=== PATIENT | male | born 1990 | race Caucasian/White ===

== ENCOUNTER 2017-05-20 11:20 | Emergency (ER) | payer MEDICAID ==
[~2017-05-20] VITALS: Ht 162.6 cm; Wt 74.8 kg
[2017-05-20 11:37] VITALS: BP 122/77
== END 2017-05-20 14:21 | disposition left against medical advice (07) ==
LOC: ER 11:20
DX: R05 Cough (principal); Z53.21 Procedure and treatment not carried out due to patient leaving prior to being seen by health care provider

== ENCOUNTER 2017-06-24 12:48 | Emergency (ER) | payer MEDICAID ==
[~2017-06-24] VITALS: Ht 165.1 cm; Wt 72.6 kg
[2017-06-24 12:56] VITALS: BP 116/71
== END 2017-06-24 19:32 | disposition left against medical advice (07) ==
LOC: ER 12:48
DX: R07.9 Chest pain, unspecified (principal); Z53.21 Procedure and treatment not carried out due to patient leaving prior to being seen by health care provider
CPT/HCPCS: 93005